=== PATIENT | female | born 1950 | race Asian ===

== ENCOUNTER 2025-07-20 14:10 | Inpatient (IN) | payer BC, MEDICARE ==
[~2025-07-20] VITALS: Ht 154.9 cm; Wt 74.0 kg
[~2025-07-20 14:10] MED LIST: CODEINE; LEVO-72 GT; [UNRECOGNIZED DRUG - REMARK]
[2025-07-20 15:03] LABS: PLATELET COUNT (AUTO) 210 K/uL (150-450); RED BLOOD CELL COUNT(AUTO) 4.74 MIL/uL (4.00-5.20); RED CELL DISTRIBUTION WIDTH 13.6 % (11.5-14.5); WHITE BLOOD COUNT (AUTO) 6.4 K/uL (4.5-11.0)
[2025-07-20] MEDS: SODIUM CHLORIDE 0.9% 1,000 ML IV ONE (15:09)
[2025-07-20 15:13] LABS: CALCIUM, TOTAL 9.7 mg/dL (8.8-10.5); CREATININE 1.24 mg/dL (0.60-1.30); GLOMERULAR FILTR. RATE CALC 43 mL/min (>60); GLUCOSE,RANDOM 135 mg/dL (70-110); SODIUM SERUM 141 mmol/L (136-145); UREA NITROGEN, BLOOD 19 mg/dL (7-18)
[2025-07-20 15:19] LABS: ASPARTATE AMINOTRANSFERASE 35.0 U/L (15-37); TOTAL PROTEIN, SERUM 7.7 g/dL (6.4-8.2)
[2025-07-20 15:24] LABS: TROPONIN I-HIGH SENSITIVITY 5 ng/L (<51)
[2025-07-20 16:31] LABS: APPEARANCE,URINE CLEAR (CLEAR); GLUCOSE, URINE (UA) NEGATIVE (NEGATIVE); LEUKOCYTE ESTERASE ,URINE SMALL (NEGATIVE); NITRATE,URINE NEGATIVE (NEGATIVE); OCCULT BLOOD,URINE NEGATIVE (NEGATIVE); SPECIFIC GRAVITIY, URINE 1.013 (1.003-1.030)
[2025-07-20 17:09] LABS: SQUAMOUS EPITHELIAL CELL,UR Rare /LPF (None Seen)
[2025-07-20] MEDS ORDERED: ONDANSETRON HCL 4 MG/2 ML VIAL IVP PRN (17:15)
[2025-07-20 18:22] LABS: TROPONIN I-HIGH SENSITIVITY 7 ng/L (<51)
[2025-07-20 22:16] LABS: TROPONIN I-HIGH SENSITIVITY 7 ng/L (<51)
[2025-07-21] VITALS (12 sets, daily range): BP systolic 117–145; BP diastolic 54–88; PULSE 57–79; RESP 16–18; TEMP 97.4–98.6; O2SAT 96–99
[2025-07-21] MEDS: HEPARIN SODIUM,PORCINE 5,000 UNITS/ML VIAL SQ SCH (01:55)
[2025-07-21 07:34] LABS: PLATELET COUNT (AUTO) 207 K/uL (150-450); RED BLOOD CELL COUNT(AUTO) 4.57 MIL/uL (4.00-5.20); RED CELL DISTRIBUTION WIDTH 13.6 % (11.5-14.5); WHITE BLOOD COUNT (AUTO) 6.0 K/uL (4.5-11.0)
[2025-07-21 07:59] LABS: CALCIUM, TOTAL 8.7 mg/dL (8.8-10.5); CREATININE 1.04 mg/dL (0.60-1.30); GLOMERULAR FILTR. RATE CALC 52.0 mL/min (>60); GLUCOSE,RANDOM 105.0 mg/dL (70-110); SODIUM SERUM 142.0 mmol/L (136-145); UREA NITROGEN, BLOOD 20.0 mg/dL (7-18)
[2025-07-21] MEDS: MELATONIN 5 MG TABLET PO PRN (20:56)
[2025-07-22 03:27] VITALS: BP 136/74; PULSE 58; RESP 18; TEMP 97.5; O2SAT 98
[2025-07-22 06:46] LABS: PLATELET COUNT (AUTO) 197 K/uL (150-450); RED BLOOD CELL COUNT(AUTO) 4.31 MIL/uL (4.00-5.20); RED CELL DISTRIBUTION WIDTH 13.2 % (11.5-14.5); WHITE BLOOD COUNT (AUTO) 4.1 K/uL (4.5-11.0)
[2025-07-22 07:07] LABS: CALCIUM, TOTAL 8.8 mg/dL (8.8-10.5); CREATININE 0.97 mg/dL (0.60-1.30); GLOMERULAR FILTR. RATE CALC 56.0 mL/min (>60); GLUCOSE,RANDOM 99.0 mg/dL (70-110); SODIUM SERUM 138.0 mmol/L (136-145); UREA NITROGEN, BLOOD 16.0 mg/dL (7-18)
[2025-07-22 07:52] VITALS: BP 134/68; PULSE 57; RESP 16; TEMP 97.7; O2SAT 97
[2025-07-22 11:02] VITALS: BP_SYST 119; BP_SYST 120; BP_SYST 128; BP_DIAS 64; BP_DIAS 67; BP_DIAS 68; PULSE 59
[2025-07-22 11:29] VITALS: BP 130/63; PULSE 58; RESP 16; TEMP 98.2; O2SAT 98
== END 2025-07-22 13:30 | disposition home or self-care (01) | DRG 74 ==
LOC: EMS 14:10 → EDH 17:15 → 5N 23:10
PROVIDERS: ADMIT Internal Medicine; ATTEND Internal Medicine
DX: G90.89 Other disorders of autonomic nervous system (principal); N17.9 Acute kidney failure, unspecified; R73.9 Hyperglycemia, unspecified; E86.0 Dehydration; E78.00 Pure hypercholesterolemia, unspecified; R53.81 Other malaise
CPT/HCPCS: 70450; 71045; 80048; 80076; 81001; 83036; 83735; 84484; 85025; 93005; 93306; 93880; 96360; 97161; 99291; J1644; 36415-L1; 36415-TC